=== PATIENT | male | born 1950 | race Caucasian/White ===

== ENCOUNTER → 2018-05-12 | Outpatient (CLI) | payer BC ==
--- NOTE | 2018-05-12 10:04 | Diagnostic Imaging Report ---
PROCEDURE:US RETROPERITONEAL ( KIDNEY ). COMPARISON:None. INDICATIONS:Hypertension Emergency TECHNIQUE: Berkowitz-scale and color sonographic images of the bilateral kidneys and bladder where obtained in transverse and longitudinal planes. FINDINGS: Refer to conclusion CONCLUSION: For full dictated report, please refer to "US RENAL DOPPLER LTD" also performed 05/12/2018. Dictated by: Allen Valencia M.D. on 05/12/2018 at 10:09 Electronically approved by: Allen Valencia M.D. on 05/12/2018 at 10:09
--- NOTE | 2018-05-12 10:04 | Diagnostic Imaging Report ---
PROCEDURE: RENAL DOPPLER ULTRASOUND COMPARISON:None. INDICATIONS:Hypertension Emergency FINDINGS: Multiple sagittal and axial images of the right and left kidneys were obtained. RIGHT KIDNEY: The right kidney measures 12.8 cm. The cortical thickness is 2.0 cm. The right kidney has normal echogenicity. There are no masses, hydronephrosis or calculi. The highest right main renal artery PSV is 123 cm/sec. The highest right segmental artery PSV is 62.3 cm/sec. LEFT KIDNEY: The left kidney measures 12.7 cm. The cortical thickness is 1.9 cm. The left kidney has normal echogenicity. There are no masses, hydronephrosis or calculi. The highest left main renal artery PSV is 161 cm/sec. The highest left segmental artery PSV is 68.4 cm/sec. . The abdominal aorta PSV is 104 cm/sec. The right renal artery/aorta ratio is 1.2. The left renal artery/aorta ratio is 1.5. The right and left renal veins are patent. The urinary bladder is notable for diffuse wall thickening which may be partially attributable to underdistention. A small diverticulum is noted along the posterior wall measuring 1.6 cm. The prostate measures 4.6 x 3.9 x 4.3 cm. CONCLUSION: 1. Normal sonographic appearance of the kidneys. 2. No sonographic evidence for renal artery stenosis. 3. Prostatomegaly. Associated bladder wall thickening likely reflects a combination of incomplete distention and detrusor hypertrophy. Small bladder diverticulum as above. Dictated by: Allen Valencia M.D. on 05/12/2018 at 10:09 Electronically approved by: Allen Valencia M.D. on 05/12/2018 at 10:09
== END ==
LOC: US 08:28
PROVIDERS: ATTEND Internal Medicine Interventional Cardiology
DX: I10 Essential (primary) hypertension (principal)
CPT/HCPCS: 76770; 93976